=== PATIENT | male | born 1940 | race Two or more races ===

== ENCOUNTER 2018-07-19 07:17 | Outpatient (CLI) | payer OTHER | END 2018-07-19 07:42 | disposition home or self-care (01) | LOC: LAB 07:17 | DX: N45.3 Epididymo-orchitis (principal) ==

== ENCOUNTER 2018-07-19 08:46 | Outpatient (CLI) | payer OTHER | END 2018-07-19 08:54 | disposition home or self-care (01) | LOC: SONOGRAMA 08:46 | DX: R22.9 Localized swelling, mass and lump, unspecified (principal); N45.3 Epididymo-orchitis ==